=== PATIENT | female | born 1995 | race African-American/Black ===

== ENCOUNTER 2018-04-19 13:34 | Emergency (ER) | payer BC ==
[~2018-04-19] VITALS: Ht 160 cm; Wt 99.8 kg
[2018-04-19] MEDS ORDERED: MOBIC15 MG PO (14:33)
[2018-04-19 15:04] VITALS: BP 128/89
== END 2018-04-19 15:00 | disposition home or self-care (01) ==
LOC: ER 13:34
DX: S93.491A Sprain of other ligament of right ankle, initial encounter (principal); F17.210 Nicotine dependence, cigarettes, uncomplicated; W18.49XA Other slipping, tripping and stumbling without falling, initial encounter; Y93.89 Activity, other specified; Y92.89 Other specified places as the place of occurrence of the external cause; Y99.8 Other external cause status

== ENCOUNTER 2021-05-28 11:27 | Emergency (ER) | payer OTHER ==
[~2021-05-28] VITALS: Ht 160 cm; Wt 99.8 kg
[~2021-05-28 11:27] MED LIST: MOBIC15 MG PO
[2021-05-28 12:14] VITALS: BP 157/99
[2021-05-28] MEDS ORDERED: DESMOPRESSIN A0.2 M2 PO (12:17)
== END 2021-05-28 13:20 | disposition home or self-care (01) ==
LOC: ER 11:27
PROVIDERS: Student in an Organized Health Care Education/Training Program
DX: U07.1 COVID-19 (principal); F17.210 Nicotine dependence, cigarettes, uncomplicated